=== PATIENT | female | born 1950 | race American Indian/Alaskan Native ===

== ENCOUNTER 2017-08-15 09:42 | Outpatient (CLI) | payer MEDICARE ==
--- NOTE | 2017-08-15 14:21 | Magnetic Resonance Report ---
MRI LUMBAR SPINE WITHOUT CONTRAST HISTORY: Degenerative joint disease, lumbar. TECHNIQUE: axial T1, T2. sagittal T1,T2, STIR. COMPARISON: none. FINDINGS: The conus terminates at L1. No signal abnormality or mass. The cauda equina is within normal limits. 3 mm anterolisthesis of L4 with respect to L5 is identified on the sagittal images. The remaining lumbar vertebra are normal in height and alignment. No compression deformity or bone marrow edema. L1-2: Within normal limits. L2-3: Within normal limits. L3-4: There is a moderate to large posterior bulging disc which lateralizes to the left side. There may be a broad-based left paracentral disc protrusion as well. This significantly effaces the anterior thecal sac and results in moderate to severe central canal stenosis. There is moderate hypertrophic facet arthropathy and mild hypertrophy of ligamentum flavum. Left neural foraminal narrowing is estimated at 25%. L4-5: Spondylolisthesis is again noted. There is a mild diffuse posterior bulging disc. Severe hypertrophic facet arthropathy. Moderate hypertrophy ligamentum flavum. These findings result in moderate to high-grade central canal stenosis. Bilateral neural foraminal narrowing is estimated at 50-75%. L5-S1: Within normal limits. IMPRESSION: Lumbar spondylosis as described. Central canal stenosis at L3-4 and L4-5.
== END 2017-08-15 09:43 | disposition home or self-care (01) ==
LOC: MRI 09:42
DX: M48.061 Spinal stenosis, lumbar region without neurogenic claudication (principal); M47.896 Other spondylosis, lumbar region; M47.816 Spondylosis without myelopathy or radiculopathy, lumbar region; M12.88 Other specific arthropathies, not elsewhere classified, other specified site; M24.28 Disorder of ligament, vertebrae; M43.16 Spondylolisthesis, lumbar region
CPT/HCPCS: 72148